=== PATIENT | male | born 2000 | race American Indian/Alaskan Native ===

== ENCOUNTER 2019-06-12 19:17 | Emergency (ER) | payer SELFPAY ==
[2019-06-12 19:32] VITALS: BP 130/85
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
[2019-06-12] MEDS ORDERED: traMADol 50 MG TAB PO ONE (19:59)
--- NOTE | 2019-06-12 20:16 | XRay Report ---
CERVICAL SPINE 3 VIEWS INDICATION / CLINICAL INFORMATION: neck pain. COMPARISON: None available. FINDINGS: No fracture, subluxation or other significant abnormality. Signer Name: Pedro Pablo Bermudez MD Signed: 06/12/2019 8:11 PM Workstation Name: [id number]
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
== END 2019-06-12 21:22 | disposition home or self-care (01) ==
LOC: ED 19:17
DX: S16.1XXA Strain of muscle, fascia and tendon at neck level, initial encounter (principal); V49.49XA Driver injured in collision with other motor vehicles in traffic accident, initial encounter; Y93.89 Activity, other specified; Y92.89 Other specified places as the place of occurrence of the external cause; Y99.8 Other external cause status
CPT/HCPCS: 72040